=== PATIENT | female | born 1950 | race Caucasian/White ===

== ENCOUNTER → 2023-06-22 14:47 | Outpatient (CLI) | payer MEDICARE, OTHER, SELFPAY ==
--- NOTE | 2023-06-22 14:49 | DI.RAD.S_ITS ---
PROCEDURE: XR CHEST 2V INDICATIONS: shortenss of brath TECHNIQUE: 2 views of the chest were acquired. COMPARISON: None. FINDINGS: Surgical changes and devices: None. Lungs and pleura: Lungs are clear. No pleural effusions or pneumothorax. Mediastinum: Mediastinal contours are normal. Heart size is normal. Bones and chest wall: No suspicious bony abnormalities. Soft tissues appear unremarkable. IMPRESSION: Unremarkable two view chest x-ray Approved by: Darren Cleary M.D. on 06/22/2023 at 18:01
== END ==
PROVIDERS: PCP Nurse Practitioner Family; Referring Provider Internal Medicine Critical Care Medicine; Visit Provider Internal Medicine Critical Care Medicine
DX: J45.909 Unspecified asthma, uncomplicated (principal)
CPT/HCPCS: 71046; 99214